=== PATIENT | female | born 1975 | race Caucasian/White ===

== ENCOUNTER 2016-04-10 13:48 | Emergency (ER) | payer OTHER ==
[2016-04-10 14:05] VITALS: BP 141/87; PULSE 74; RESP 16; TEMP 98.5
[2016-04-10] MEDS ORDERED: DIPH,PERTUS(ACELL)TETVAC-LF 0.5 ML VIAL IM ONE (14:14)
--- NOTE | 2016-04-10 14:25 | ED ---
General Adult HPI - General Chief complaint: Animal Bite Stated complaint: Animal Bite Time Seen by Provider: 04/10/16 14:07 Source: patient, RN notes reviewed Mode of arrival: ambulatory Limitations: no limitations - History of Present Illness Initial comments: This is a 40-year-old female presents with a cat bite to the right hand. Patient states this happened today. Patient states they had a live trap set up in their backyard and accidentally caught a stray cat. Patient states this is not their family cat or the cat of anyone she knows. Patient states she was petting the cat trying to let it out of the trap when it bit her. Patient immediately washed her hand with warm water and hydrogen peroxide and applied Neosporin. Patient states she is not up-to-date on her tetanus shot. Patient denies any numbness/tingling or weakness. Patient denies any fever or chills. Patient denies any recent shortness breath, chest pain, abdominal pain, nausea/ vomiting/diarrhea, back pain, hematuria, headache, or visual changes, or any other complaints. Patient denies any chance of being today. - Related Data Previous Rx's Medication Instructions Recorded Cefuroxime Axetil [Ceftin] 500 mg PO BID 5 Days 04/10/16 Allergies Allergy/AdvReac Type Severity Reaction Status Date / Time Penicillins Allergy Unknown Verified 04/10/16 14:19 Review of Systems ROS Statement: Those systems with pertinent positive or pertinent negative responses have been documented in the HPI. ROS Other: All systems not noted in ROS Statement are negative. Past Medical History Past Medical History: No Reported History History of Any Multi-Drug Resistant Organisms: None Reported Past Surgical History: No Surgical Hx Reported Past Psychological History: No Psychological Hx Reported Smoking Status: Never smoker Past Alcohol Use History: None Reported Past Drug Use History: None Reported General Exam - General Exam Comments Initial Comments: General: The patient is awake and alert, in no distress, and does not appear acutely ill. Neck: The neck is supple, there is no tenderness or JVD. Cardiovascular: There is a regular rate and rhythm. No murmur, rub or gallop is appreciated. Respiratory: Lungs are clear to auscultation, respirations are non-labored, breath sounds are equal. No wheezes, stridor, rales, or rhonchi. Musculoskeletal: Full range of motion, strength 5/5 and Sensation intact. Radial pulses 2+ bilaterally. Neurological: A&O x 3. CN II-XII intact, There are no obvious motor or sensory deficits. Coordination appears grossly intact. Speech is normal. Skin: There are several small ~1-2 mm puncture wounds to the lateral aspect of the right hand, no swelling, ecchymosis or erythema. Skin is warm and dry and no rashes are noted. Psychiatric: Normal mood and affect. Limitations: no limitations Course Vital Signs 04/10/16 14:03 Temperature 98.5 F Pulse Rate 74 Respiratory 16 Rate Blood Pressure 141/87 O2 Sat by Pulse 98 Oximetry Medical Decision Making - Medical Decision Making This is a 40-year-old female presents with a cat bite to the right hand. This bite appeared to be provoked as the animal was caught in a trap at the time of bite. On physical exam There are several small ~1-2 mm puncture wounds to the lateral aspect of the right hand, no swelling, ecchymosis or erythema. An x-ray of the right hand was done and reviewed showing: No definite acute fracture or dislocation if symptoms persist, follow-up study in 7-10 days would be suggested. Reported by Dr. Ibarra. Patient was given a tetanus shot in the [facility] today. Discussed return parameters. Discussed that patient should report this to the health department and follow up her primary care physician in 1-2 days. Discussed signs of rabies. Patient still has the cat in the trap, but thinks that the cat may be when they get home. Discussed rabies testing for the animal and possibility for rabies prophylaxis if cat shows any signs of rabies. Patient will be given a prescription for cefuroxime for wound prophylaxis. Discussed keeping area clean and dry. Discussed that patient should follow up with PCP in one to 2 days or return to the [facility] for any worsening symptoms or for any further concerns. Patient was receptive to this plan and patient will be discharged home. I discussed his case with attending physician Dr. Brown who agrees the plan as stated above. Disposition Clinical Impression: Cat bite Disposition: HOME SELF-CARE Condition: Good Instructions: Animal Bite (ED) Additional Instructions: Please finish entire course of antibiotics and watch for signs infection. Please keep area clean and dry. Please notify the health department of this event. Please watch for signs and symptoms of rabies in the cat or get the cat tested for rabies. Please use medication as discussed. Please follow-up with family doctor in the next 2 days of symptoms have not improved. Please return to emergency room if the symptoms increase or worsen or for any other concerns. Prescriptions: Cefuroxime Axetil [Ceftin] 500 mg PO BID 5 Days Referrals: Gabrielle Glover MD [Primary Care Provider] - 1-2 days Time of Disposition: 15:12
--- NOTE | 2016-04-10 14:30 | XR ---
EXAMINATION TYPE: XR hand complete RT DATE OF EXAM: 04/10/2016 2:22 PM COMPARISON: NONE HISTORY: Pain post cat bite FINDINGS: The osseous structures are intact. The joint spaces are preserved and there is no acute fracture or dislocation. IMPRESSION: 1. No definite acute fracture or dislocation if symptoms persist, follow-up study in 7 to 10 days wo uld be suggested
== END 2016-04-10 15:19 | disposition home or self-care (01) ==
LOC: EC 13:48
DX: S61.451A Open bite of right hand, initial encounter (principal); Z23 Encounter for immunization; W55.01XA Bitten by cat, initial encounter; Y92.009 Unspecified place in unspecified non-institutional (private) residence as the place of occurrence of the external cause; Z88.0 Allergy status to penicillin
CPT/HCPCS: 90471; 90715; 99283